=== PATIENT | male | born 1950 | race Caucasian/White ===

== ENCOUNTER 2017-04-17 08:38 | Emergency (ER) | payer MEDICARE, BC ==
[~2017-04-17] VITALS: Ht 180.3 cm; Wt 80.0 kg
[~2017-04-17 08:38] MED LIST: FISH OIL1000 MG PO; GRIFULVIN V500 MG OR; HYDROCHLOROT12.5 MG PO; HYDROCHLOROT25 MG PO; LUNESTA3 MG OR; LUNESTA3 MG PO; TENORETIC 501 TAB OR; VIAGRA100 MG PO; ZOLPIDEM10 M1 PO
[2017-04-17] MEDS ORDERED: XANAX0.5 MG PO (08:46)
[2017-04-17] MEDS ORDERED: SILVADENE1 % EX (09:12)
[2017-04-17] MEDS ORDERED: AMOXICILLIN500 MG PO (09:12)
[2017-04-17 09:38] VITALS: BP 157/96
== END 2017-04-17 09:42 | disposition home or self-care (01) ==
LOC: ED 08:38
PROC: 2W2DX4Z Dressing of Left Lower Arm using Bandage (ICD-10-PCS; principal; 2017-04-17)
DX: T22.212A Burn of second degree of left forearm, initial encounter (principal); F41.9 Anxiety disorder, unspecified; T31.0 Burns involving less than 10% of body surface; X01.0XXA Exposure to flames in uncontrolled fire, not in building or structure, initial encounter

== ENCOUNTER → 2018-06-25 | Outpatient (REF) | payer MEDICARE ==
[~2018-06-25] MED LIST changes: +AMOXICILLIN500 MG PO; +SILVADENE1 % EX; +XANAX0.5 MG PO
[2018-06-25 08:26] LABS: HEMOGLOBIN 15.5 g/dl (14.0-18.0); IMMATURE GRANULOCYTES 0.5 % (0.0-5.0); MEAN CELL VOLUME 93.3 fL CALC (80.0-100.0); MEAN CORPUSCULAR HGB 31.4 pG CALC (26.0-32.0); MEAN CORPUSCULAR HGB CONC 33.7 g/L CALC (32.0-36.0); NEUT# 4.18 thou/uL (1.82-7.42); RED BLOOD COUNT 4.93 mill/uL (4.70-6.10); RED CELL DISTRI WIDTH 13.1 % (11.5-15.5)
[2018-06-25 08:28] LABS: ALBUMIN 4.3 g/dL (3.2-5.0); ALKALINE PHOSPHATASE 70 u/l (38-126); ANION GAP 14 (6-22 (CALC)); BILIRUBIN, TOTAL 0.7 mg/dL (0.0-1.4); BUN 19 mg/dL (8-23); BUN/CREATININE RATIO 20 (12-20 (CALC)); CALCULATED LDLCHOLESTEROL 111 mg/dL (62-129 (CALC)); CARBON DIOXIDE 27 mmol/l (22-30); CHLORIDE 108 mmol/l (95-108); CHOLESTEROL HDL RATIO 4.2 (<4.4 (CALC)); GFR > 60 ML/MIN (>=60 (CALC)); GFR FOR AFR.AMER. > 60 ML/MIN (>=60 (CALC)); HDL CHOLESTEROL 44 mg/dL (>=40); POTASSIUM 4.6 mmol/l (3.5-5.1); SGOT/AST 27 u/l (19-48); SODIUM 144 mmol/l (137-146); TOTAL CHOLESTEROL 184 mg/dl (0-199); TOTAL PROTEIN 7.1 g/dL (6.3-8.2); TOTAL TRIGLYCERIDES 145 mg/dl (30-149); VLDL CHOLESTROL 29 mg/dl (4-45 (CALC))
== END | disposition home or self-care (01) ==
LOC: LAB 06:56
PROVIDERS: ATTEND Nurse Practitioner
DX: E78.2 Mixed hyperlipidemia (principal); F41.9 Anxiety disorder, unspecified

== ENCOUNTER 2020-03-08 13:08 | Emergency (ER) | payer MEDICARE ==
[~2020-03-08] VITALS: Ht 180.3 cm; Wt 70.0 kg
[2020-03-08] MEDS ORDERED: ATORVASTATIN CA20 MG PO (13:27)
[2020-03-08] MEDS ORDERED: KEFLEX500 M1 PO (14:24)
[2020-03-08 14:48] VITALS: BP 158/80
== END 2020-03-08 14:40 | disposition home or self-care (01) ==
LOC: ED 13:08
PROC: 0HQEXZZ Repair Left Lower Arm Skin, External Approach (ICD-10-PCS; principal; 2020-03-08)
DX: S51.812A Laceration without foreign body of left forearm, initial encounter (principal); E78.5 Hyperlipidemia, unspecified; W31.1XXA Contact with metalworking machines, initial encounter; Y93.89 Activity, other specified; Y92.009 Unspecified place in unspecified non-institutional (private) residence as the place of occurrence of the external cause

== ENCOUNTER 2020-03-18 08:02 | Emergency (ER) | payer MEDICARE ==
[~2020-03-18] VITALS: Ht 180.3 cm; Wt 90.0 kg
[~2020-03-18 08:02] MED LIST changes: +ATORVASTATIN CA20 MG PO; +KEFLEX500 M1 PO
[2020-03-18 09:18] VITALS: BP 122/65
== END 2020-03-18 09:22 | disposition home or self-care (01) ==
LOC: ED 08:02
DX: S51.812D Laceration without foreign body of left forearm, subsequent encounter (principal); X58.XXXD Exposure to other specified factors, subsequent encounter

== ENCOUNTER 2022-01-14 08:38 | Emergency (ER) | payer MEDICARE ==
[~2022-01-14] VITALS: Ht 180.3 cm; Wt 113.6 kg
[2022-01-14] VITALS (7 sets, daily range): BP systolic 125–141; BP diastolic 78–85
[~2022-01-14 08:38] MED LIST changes: +LISINOPRIL20 MG PO; +VITAMIN B-12500 MCG PO; +VITAMIN C1000 MG PO; +ZINC50 M1 PO
[2022-01-14 09:16] LABS: HEMATOCRIT 37.9 % (39.0-50.0); IMMATURE GRANULOCYTES 0.4 % (0.0-5.0); MEAN CORPUSCULAR HGB 32.3 pG CALC (26.0-32.0); MEAN CORPUSCULAR HGB CONC 34.3 g/dL CAL (32.0-36.0); NEUT# 4.72 thou/uL (1.82-7.42); RED BLOOD COUNT 4.03 mill/uL (4.70-6.10); RED CELL DISTRI WIDTH 12.6 % (11.5-15.5)
[2022-01-14 09:27] LABS: ALBUMIN 3.9 g/dL (3.2-5.0); ALKALINE PHOSPHATASE 82 u/l (38-126); ANION GAP 10 (6-22 (CALC)); BILIRUBIN, TOTAL 0.5 mg/dL (0.0-1.4); BUN 14 mg/dL (8-23); BUN/CREATININE RATIO 15 (12-20 (CALC)); CARBON DIOXIDE 25 mmol/l (22-30); CHLORIDE 109 mmol/l (95-108); GFR FOR AFR.AMER. > 60 ML/MIN (>=60 (CALC)); GFR OTHER RACES > 60 ML/MIN (>=60 (CALC)); POTASSIUM 4.6 mmol/l (3.5-5.1); SGOT/AST 26 u/l (19-48); SODIUM 139 mmol/l (137-146)
== END 2022-01-14 13:19 ==
LOC: ED 08:38
PROVIDERS: Family Medicine
DX: L03.114 Cellulitis of left upper limb (principal); I10 Essential (primary) hypertension; E78.5 Hyperlipidemia, unspecified